=== PATIENT | female | born 1965 | race Caucasian/White ===

== ENCOUNTER → 2016-06-28 | Outpatient (CLI) | payer MEDICARE, MEDICAID ==
[~2016-06-28] MED LIST: ASPI325T4 PO; BIOT25004 PO; CINN500C2 PO; CLON-364 PO; CLOZ100T18 PO; DOCU240C53 PO; ERGO500017 PO; FISH1CAP PO; FLUO20TA25 PO; GARL10002 PO; LISI1TAB3 PO; MAGN400T36 PO; NIAC500T10 PO; TOPI100T94 PO; VITA400C40 PO; [UNRECOGNIZED DRUG - OTHER] PO
[2016-06-28 12:02] LABS: ASPARTATE AMINO TRANSFERASE 4 U/L (15-37); BLOOD UREA NITROGEN 14 mg/dL (7-18)
== END | disposition home or self-care (01) ==
LOC: STAR 10:53
PROVIDERS: ATTEND Specialist
DX: Z01.818 Encounter for other preprocedural examination (principal); C54.1 Malignant neoplasm of endometrium; R79.1 Abnormal coagulation profile; Z90.710 Acquired absence of both cervix and uterus
CPT/HCPCS: 36415; 71020; 80053; 85025; 85610; 85730; 86304; 93005

== ENCOUNTER 2016-07-03 09:26 | Inpatient (IN) | payer MEDICARE, MEDICAID ==
[~2016-07-03] VITALS: Ht 170.2 cm; Wt 114.2 kg
[2016-07-03 12:49] VITALS: BP 132/89
[2016-07-03] MEDS ORDERED: LIDOCAINE 1%, 2ML ONE (12:55)
[2016-07-03] MEDS ORDERED: LACTATED RINGERS 1,000 ML IV SCH (13:16)
[2016-07-03 13:40] LABS: HCG UR OBC PASS
[2016-07-03] MEDS ORDERED: FENTANYL PF 250 MCG/5ML ONE (15:26)
[2016-07-03] MEDS ORDERED: MIDAZOLAM 1 MG/ML, 2ML ONE (15:27)
[2016-07-03] MEDS ORDERED: NEOSTIGMINE 1 MG/ML, 10ML ONE (15:28)
[2016-07-03] MEDS ORDERED: KETOROLAC 30 MG/1 ML ONE (15:28)
[2016-07-03] MEDS ORDERED: GLYCOPYRROLATE 0.2MG/1ML ONE (15:28)
[2016-07-03] MEDS ORDERED: ROCURONIUM 10 MG/ML ONE (15:28)
[2016-07-03] MEDS ORDERED: PROPOFOL 10 MG/ML, 20ML ONE (15:28)
[2016-07-03] MEDS ORDERED: CEFOTETAN 2 GM ONE (15:28)
[2016-07-03] MEDS ORDERED: DEXAMETHASONE 4 MG/ML, 1ML ONE (15:28)
[2016-07-03] MEDS ORDERED: ONDANSETRON 2MG/ML, 2ML ONE (15:28)
[2016-07-03] MEDS ORDERED: HEPARIN 1,000 UNITS/ML, 10ML ONE (15:52)
[2016-07-03] MEDS ORDERED: INDOCYANINE GREEN 25 MG VIAL ONE (15:52)
[2016-07-03] MEDS ORDERED: BUPIVACAINE/PF-EPI 0.25% 1:200K ONE (15:52)
[2016-07-03] MEDS ORDERED: OXYcodone 5 MG/5 ML ORAL.SOL UDC PO PRN (16:30)
[2016-07-03] MEDS ORDERED: hydrALAzine 20 MG/ML, 1ML IV PRN (16:30)
[2016-07-03] MEDS ORDERED: FENTANYL PF 100 MCG/2ML IV PRN (16:30)
[2016-07-03] MEDS ORDERED: HYDROcodone/APAP 7.5-325MG/15ML UDC PO PRN (16:30)
[2016-07-03] MEDS ORDERED: ACETAMINOPHEN 325 MG TABLET PO PRN ×2 (16:30→21:30)
[2016-07-03] MEDS ORDERED: LABETALOL 5MG/ML, 20ML IV PRN (16:30)
[2016-07-03] MEDS ORDERED: EPHEDRINE 50 MG/ML, 1ML IVPush PRN (16:30)
[2016-07-03] MEDS ORDERED: PROMETHAZINE 25 MG/ML, 1ML IV PRN (16:30)
[2016-07-03] MEDS ORDERED: MIDAZOLAM 1 MG/ML, 2ML IV PRN (16:30)
[2016-07-03] MEDS ORDERED: HYDROmorphone 1 MG/ML, 1ML IV PRN (16:30)
[2016-07-03] MEDS ORDERED: ONDANSETRON 2MG/ML, 2ML IVPush PRN (16:30)
[2016-07-03] MEDS ORDERED: FENTANYL PF 100 MCG/2ML ONE (18:22)
[2016-07-03] MEDS ORDERED: OXYcodone 5 MG/5 ML ORAL.SOL UDC ONE (18:22)
[2016-07-03] MEDS ORDERED: ONDANSETRON 2MG/ML, 2ML IV PRN (21:30)
[2016-07-03] MEDS ORDERED: ACETAMINOPHEN 650 MG SUPP PR PRN (21:30)
[2016-07-03] MEDS ORDERED: morphine SULFATE 10 MG/ML, 1ML IV PRN (21:30)
[2016-07-03] MEDS ORDERED: OXYcodone/APAP 7.5/325MG TABLET PO PRN (22:00)
[2016-07-03] MEDS ORDERED: KETOROLAC 30 MG/1 ML IV PRN (22:00)
[2016-07-04] VITALS (7 sets, daily range): BP systolic 72–144; BP diastolic 29–76
[2016-07-04] MEDS: POTASSIUM CHLORIDE 20 MEQ in D5%-LACTATED RINGERS 1,000 ML IV SCH ×3 (00:20→14:47)
[2016-07-04 05:25] LABS: BLOOD UREA NITROGEN 18 mg/dL (7-18)
[2016-07-04] MEDS: TOPIRAMATE 100 MG TABLET PO SCH ×2 (08:35→21:54)
[2016-07-04] MEDS ORDERED: IBUPROFEN 200 MG TABLET PO PRN (09:00)
[2016-07-04] MEDS ORDERED: ERGOCALCIFEROL 50,000 UNIT CAPSULE PO SCH (09:00)
[2016-07-04] MEDS: LISINOPRIL 10 MG TABLET PO SCH (10:15)
[2016-07-04] MEDS: OMEGA-3/FISH OIL CAPSULE PO SCH ×2 (10:16→21:26)
[2016-07-04] MEDS: FLUOXETINE 20 MG CAPSULE PO SCH (10:21)
[2016-07-04] MEDS: HYDROCHLOROTHIAZIDE 12.5 MG CAPSULE PO SCH (13:00)
[2016-07-04] MEDS: VITAMIN E 400 UNITS CAPSULE PO SCH (21:27)
[2016-07-04] MEDS: ASPIRIN 325 MG TABLET PO SCH (21:27)
[2016-07-04] MEDS: NIACIN 500 MG TABLET.ER PO SCH (21:27)
[2016-07-04] MEDS: MAGNESIUM OXIDE 400 MG TABLET PO SCH (21:54)
[2016-07-04] MEDS: DOCUSATE CALCIUM 240 MG CAPSULE PO SCH (21:54)
[2016-07-05] VITALS (13 sets, daily range): BP systolic 95–129; BP diastolic 42–72
[2016-07-05] MEDS: CLOZAPINE 100 MG TABLET PO SCH ×2 (03:21→18:04)
[2016-07-05] MEDS: POTASSIUM CHLORIDE 20 MEQ in D5%-LACTATED RINGERS 1,000 ML IV SCH ×4 (03:22→21:07)
[2016-07-05] MEDS ORDERED: SODIUM CHLORIDE 0.9%, 500ML IVBOLUS ONE (04:00)
[2016-07-05 05:24] LABS: BLOOD UREA NITROGEN 26 mg/dL (7-18)
[2016-07-05] MEDS: OMEGA-3/FISH OIL CAPSULE PO SCH ×2 (08:34→20:47)
[2016-07-05] MEDS: LISINOPRIL 10 MG TABLET PO SCH (08:40)
[2016-07-05] MEDS: HYDROCHLOROTHIAZIDE 12.5 MG CAPSULE PO SCH (08:40)
[2016-07-05] MEDS: TOPIRAMATE 100 MG TABLET PO SCH ×2 (08:44→20:47)
[2016-07-05] MEDS: FLUOXETINE 20 MG CAPSULE PO SCH (08:44)
[2016-07-05] MEDS ORDERED: POTASSIUM CHLORIDE 20 MEQ in D5%-LACTATED RINGERS 1,000 ML IV SCH ×2 (11:30→21:30)
[2016-07-05] MEDS: ASPIRIN 325 MG TABLET PO SCH (20:46)
[2016-07-05] MEDS: NIACIN 500 MG TABLET.ER PO SCH (20:46)
[2016-07-05] MEDS: VITAMIN E 400 UNITS CAPSULE PO SCH (20:47)
[2016-07-05] MEDS: DOCUSATE CALCIUM 240 MG CAPSULE PO SCH (20:47)
[2016-07-05] MEDS: MAGNESIUM OXIDE 400 MG TABLET PO SCH (20:47)
[2016-07-06 02:40] VITALS: BP 110/71
[2016-07-06] MEDS: POTASSIUM CHLORIDE 20 MEQ in D5%-LACTATED RINGERS 1,000 ML IV SCH ×2 (04:44→22:07)
[2016-07-06] MEDS: OMEGA-3/FISH OIL CAPSULE PO SCH ×2 (08:54→21:46)
[2016-07-06 09:01] VITALS: BP 109/70
[2016-07-06 09:01] LABS: BLOOD UREA NITROGEN 15 mg/dL (7-18)
[2016-07-06] MEDS: TOPIRAMATE 100 MG TABLET PO SCH ×2 (09:06→21:47)
[2016-07-06] MEDS: HYDROCHLOROTHIAZIDE 12.5 MG CAPSULE PO SCH (09:06)
[2016-07-06] MEDS: LISINOPRIL 10 MG TABLET PO SCH (09:06)
[2016-07-06] MEDS: FLUOXETINE 20 MG CAPSULE PO SCH (09:06)
[2016-07-06] MEDS ORDERED: OMNIPAQUE 350 MG/ML, 100ML BOTTLE ONE (11:02)
[2016-07-06 13:00] LABS: ASPARTATE AMINO TRANSFERASE 8 U/L (15-37); BLOOD UREA NITROGEN 11 mg/dL (7-18)
[2016-07-06 14:30] VITALS: BP 102/60
[2016-07-06 19:53] VITALS: BP 99/68
[2016-07-06] MEDS: DOCUSATE CALCIUM 240 MG CAPSULE PO SCH (21:00)
[2016-07-06] MEDS: CLOZAPINE 100 MG TABLET PO SCH (21:00)
[2016-07-06] MEDS: ASPIRIN 325 MG TABLET PO SCH (21:45)
[2016-07-06] MEDS: NIACIN 500 MG TABLET.ER PO SCH (21:46)
[2016-07-06] MEDS: MAGNESIUM OXIDE 400 MG TABLET PO SCH (21:46)
[2016-07-06] MEDS: VITAMIN E 400 UNITS CAPSULE PO SCH (21:47)
[2016-07-07 02:09] VITALS: BP 127/79
[2016-07-07 05:27] LABS: BLOOD UREA NITROGEN 10 mg/dL (7-18)
[2016-07-07] MEDS: POTASSIUM CHLORIDE 20 MEQ in D5%-LACTATED RINGERS 1,000 ML IV SCH ×4 (05:30→21:07)
[2016-07-07 08:30] VITALS: BP 101/57
[2016-07-07] MEDS: OMEGA-3/FISH OIL CAPSULE PO SCH ×2 (08:47→21:18)
[2016-07-07] MEDS: FLUOXETINE 20 MG CAPSULE PO SCH (08:48)
[2016-07-07] MEDS: HYDROCHLOROTHIAZIDE 12.5 MG CAPSULE PO SCH (08:48)
[2016-07-07] MEDS: LISINOPRIL 10 MG TABLET PO SCH (08:48)
[2016-07-07] MEDS: TOPIRAMATE 100 MG TABLET PO SCH ×2 (08:48→21:18)
[2016-07-07 14:02] VITALS: BP 102/65
[2016-07-07 19:55] VITALS: BP 108/74
[2016-07-07] MEDS: CLOZAPINE 100 MG TABLET PO SCH (21:00)
[2016-07-07] MEDS: DOCUSATE CALCIUM 240 MG CAPSULE PO SCH (21:00)
[2016-07-07] MEDS: NIACIN 500 MG TABLET.ER PO SCH (21:18)
[2016-07-07] MEDS: MAGNESIUM OXIDE 400 MG TABLET PO SCH (21:18)
[2016-07-07] MEDS: ASPIRIN 325 MG TABLET PO SCH (21:18)
[2016-07-07] MEDS: VITAMIN E 400 UNITS CAPSULE PO SCH (21:19)
[2016-07-08 01:18] VITALS: BP 112/78
[2016-07-08] MEDS: POTASSIUM CHLORIDE 20 MEQ in D5%-LACTATED RINGERS 1,000 ML IV SCH (07:10)
[2016-07-08 09:28] VITALS: BP 135/74
[2016-07-08] MEDS: OMEGA-3/FISH OIL CAPSULE PO SCH (09:29)
[2016-07-08] MEDS: HYDROCHLOROTHIAZIDE 12.5 MG CAPSULE PO SCH (09:31)
[2016-07-08] MEDS: TOPIRAMATE 100 MG TABLET PO SCH (09:31)
[2016-07-08] MEDS: LISINOPRIL 10 MG TABLET PO SCH (09:31)
[2016-07-08] MEDS: FLUOXETINE 20 MG CAPSULE PO SCH (09:32)
[2016-07-08] MEDS ORDERED: OXYC-223 PO (16:05)
[2016-07-08] MEDS ORDERED: METO10TA82 PO (16:06)
[2016-07-08] MEDS ORDERED: ONDA4TAB7 PO (16:06)
== END 2016-07-08 17:07 | disposition home or self-care (01) | DRG 740 ==
LOC: ORIP 12:26 → 3NW 19:45
PROVIDERS: ADMIT Specialist; ATTEND Specialist
PROC: 0UT2FZZ Resection of Bilateral Ovaries, Via Natural or Artificial Opening With Percutaneous Endoscopic Assistance (ICD-10-PCS; 2016-07-03)
PROC: 0UT7FZZ Resection of Bilateral Fallopian Tubes, Via Natural or Artificial Opening With Percutaneous Endoscopic Assistance (ICD-10-PCS; 2016-07-03)
PROC: 07BC4ZZ Excision of Pelvis Lymphatic, Percutaneous Endoscopic Approach (ICD-10-PCS; 2016-07-03)
PROC: 8E0W4CZ Robotic Assisted Procedure of Trunk Region, Percutaneous Endoscopic Approach (ICD-10-PCS; 2016-07-03)
PROC: 0UT9FZZ Resection of Uterus, Via Natural or Artificial Opening With Percutaneous Endoscopic Assistance (ICD-10-PCS; principal; 2016-07-03 16:30)
PROC: 30233N1 Transfusion of Nonautologous Red Blood Cells into Peripheral Vein, Percutaneous Approach (ICD-10-PCS; 2016-07-05)
DX: C54.1 Malignant neoplasm of endometrium (principal); E44.1 Mild protein-calorie malnutrition; D62 Acute posthemorrhagic anemia; E66.01 Morbid (severe) obesity due to excess calories; F32.9 Major depressive disorder, single episode, unspecified; F41.9 Anxiety disorder, unspecified; N84.0 Polyp of corpus uteri; N83.319 Acquired atrophy of ovary, unspecified side; I10 Essential (primary) hypertension; N83.9 Noninflammatory disorder of ovary, fallopian tube and broad ligament, unspecified; F99 Mental disorder, not otherwise specified; G40.901 Epilepsy, unspecified, not intractable, with status epilepticus; G43.909 Migraine, unspecified, not intractable, without status migrainosus; R01.1 Cardiac murmur, unspecified; Z88.1 Allergy status to other antibiotic agents; Z87.891 Personal history of nicotine dependence; Z82.49 Family history of ischemic heart disease and other diseases of the circulatory system; Z80.8 Family history of malignant neoplasm of other organs or systems; Z68.39 Body mass index [BMI] 39.0-39.9, adult; G40.909 Epilepsy, unspecified, not intractable, without status epilepticus
CPT/HCPCS: 36415; 74174; 74176; 80048; 80053; 81025; 85025; 85610; 85730; 86850; 86900; 86923; 87324; 88305; 88307; 88309; 88333; J1100; J1644; J1885; J2250; J2405; J2704; J2710; J3010; J3480; J3490; Q9967; J2270; J7040; J7120; J7121; P9016; S0074

== ENCOUNTER 2017-03-04 11:31 | Emergency (ER) | payer MEDICARE, MEDICAID ==
[~2017-03-04] VITALS: Ht 170.2 cm; Wt 97.8 kg
[~2017-03-04 11:31] MED LIST changes: +ASPI325T17 PO; -ASPI325T4 PO; -BIOT25004 PO; +BIOT25005 PO; +METO10TA82 PO; +ONDA4TAB7 PO; +OXYC-306 PO; +TOPI100T8 PO; -TOPI100T94 PO; -VITA400C40 PO; +VITA400C43 PO
[2017-03-04] MEDS ORDERED: LIDOCAINE 1%, 10ML INFIL ONE (12:00)
[2017-03-04] MEDS ORDERED: LIDOCAINE 1%, 20ML ONE (12:14)
[2017-03-04] MEDS ORDERED: DIPH,PERTUSS(ACELL),TET VAC/PF 0.5 ML IM-VACC ONE (12:14)
[2017-03-04] MEDS ORDERED: DIPHTHERIA-TETANUS ADULT 0.5ML IM-VACC ONE (12:30)
[2017-03-04 15:19] VITALS: BP 122/67
== END 2017-03-04 15:25 | disposition home or self-care (01) ==
LOC: ED 13:09
DX: S61.213A Laceration without foreign body of left middle finger without damage to nail, initial encounter (principal); Z87.891 Personal history of nicotine dependence; W26.0XXA Contact with knife, initial encounter; Y93.89 Activity, other specified; Y92.009 Unspecified place in unspecified non-institutional (private) residence as the place of occurrence of the external cause; Y99.9 Unspecified external cause status
CPT/HCPCS: 12001; 90471; 90714; 99283; J3490